=== PATIENT | male | born 1945 | race Caucasian/White ===

== ENCOUNTER 2017-09-25 08:20 | Observation (INO) | payer OTHER ==
[2017-09-25] VITALS (14 sets, daily range): BP systolic 133–186; BP diastolic 81–97; PULSE 47–65; TEMP 36.4–36.9; O2SAT 95–100; Ht 177.8 cm; Wt 92.8 kg
[~2017-09-25] VITALS: Ht 177.8 cm; Wt 92.8 kg
[~2017-09-25 08:20] MED LIST: ASPEC81 PO; CIPR-255 PO; FINA5TAB PO; IBUP-1050 PO; PHEN-876 PO; PRLSR20 PO; SIMV40TA2 PO; TAMS0.4C38 PO; TERA1CAP63 PO
[2017-09-25] MEDS ORDERED: CYAN500T PO (09:06)
[2017-09-25] MEDS ORDERED: GLC/500 PO (09:06)
[2017-09-25] MEDS ORDERED: OMEG10007 PO (09:06)
[2017-09-25] MEDS ORDERED: CHOL1000 PO (09:06)
[2017-09-25] MEDS ORDERED: ATOR10TA82 PO (09:06)
--- NOTE | 2017-09-25 09:30 | Pre Sedation Assessment ---
Pre Sedation Assessment General Date of Sedation: Sep 25, 2017. Vital Signs Past 12 Hours Date Time Temp Pulse Resp B/P (MAP) Pulse Ox O2 Delivery O2 Flow Rate FiO2 09/25/17 09:04 36.4 47 16 182/97 (125) 100 Room Air Review Cardiovascular: regular rate, rhythm, no murmur, + bradycardia Lungs: lungs clear, normal breath sounds Pre-Sedation Airway Assessment Smoking Status: Former Smoker Hx of Sleep Apnea: No Short Thick Neck: No Thyro-mental Distance: > 3 Finger Breadths Oral Cavity: WNL Mallampati Classification: Class II ASA Classification: Class II NPO Status Date of Last Intake of Fluids: Sep 24, 2017 Time of Last Intake of Fluids: 1999 Date of Last Intake of Solids: Sep 24, 2017 Time of Last Intake of Solids: 1999 Procedure Planning Contraindications for Sedation: None Current Medications Reviewed: Yes Notes The planned sedation has been discussed with the patient. Informed Consent was obtained. I have identified the patient, determined the appropriateness of sedation and have assessed the patient immediately prior to the procedure. All medicine(s) and interventions are by my order.
--- NOTE | 2017-09-25 09:30 | History & Physical Bridge Note ---
H&P Re-Evaluation Bridge Note: I have examined the patient, reviewed the History & Physical and in the interval since the performance of the History & Physical I have noted the following changes of clinical significance: No changes noted
[2017-09-25] MEDS ORDERED: LIDOCAINE HCL 1% 20 ML VIAL ONE (10:28)
[2017-09-25] MEDS ORDERED: BACITRACIN 50000 UNIT VIAL ONE (10:29)
[2017-09-25] MEDS ORDERED: BUPIVACAINE 0.25% 30 ML VIAL ONE (10:29)
[2017-09-25] MEDS ORDERED: CEFAZOLIN SOD 1 GM VIAL ONE (10:36)
[2017-09-25] MEDS ORDERED: FENTANYL CITRATE INJ 50 MCG/1 ML 2 ML VIAL ONE ×2 (10:36→11:20)
[2017-09-25] MEDS ORDERED: MIDAZOLAM HCL 5 MG/ML 1 ML VIAL ONE ×2 (10:36→11:28)
[2017-09-25] MEDS ORDERED: WATER, STERILE FOR INJ 20 ML VIAL ONE (10:37)
--- NOTE | 2017-09-25 11:49 | Post Sedation Assessment ---
Post Sedation Assessment General Date of Sedation Sep 25, 2017. Vital Signs: Vital Signs Past 12 Hours Date Time Temp Pulse Resp B/P (MAP) Pulse Ox O2 Delivery O2 Flow Rate FiO2 09/25/17 09:04 36.4 47 16 182/97 (125) 100 Room Air Post Procedure Recovery Score Activity: (2) Moves 4 extremities * Respiration: (2) Deep breath/cough Circulation: (2) +/-20% PreAnes Value Consciousness: (2) Fully Awake Oxygen Saturation: (2) > 92% On Room Air Discharge Sedation Level of Care: Fast Track Phase II Post Sedation Plan On clinical assessment, the patient appears to have tolerated the sedation without complications. Patient is recovering as anticipated. Patient will continue to be monitored by nursing and may be discharged when sedation discharge criteria are met per below protocol. Upon Completions of procedure and additional 15 minutes continue every 5 minute vital signs and the P.A.R. score; then discharge to a Phase I or Fast Track to Phase II per the following guidelines: * Discharge Patient to appropriate Phase II area if PAR is 8 or greater or return to pre- procedure baseline. The post - procedure orders will be as directed. * If PAR score is less than 8 or not return to pre-procedure baseline then patient will follow Phase I monitoring till PAR is reached for Phase II. The Phase I may be done in procedure room or may call to secure a Phase I area. * If naloxone or flumazenil are used for reversal, hold in Phase I for an additional 60 -120 minutes before discharge to Phase II. Please call the Sedation Physician to re-evaluate and complete post-note for discharge to Phase II area. Do NOT discharge from procedure sedation or Phase 1 until post- sedation evaluation note is complete by procedure /sedation MD Sedation Discharge Instructions to be given to the patient at discharge to home.
--- NOTE | 2017-09-25 11:51 | [facility] Post Operative Brief Note ---
Immediate Operative Summary Operative Date Sep 25, 2017. Pre-Operative Diagnosis tbs Post-Operative Diagnosis same Procedure(s) Performed dual chamber rate responsive permanent pacemaker under fluroscopic guidance Surgeon alo conde Test Specialist Surgeon(s) none Estimated Blood Loss <20cc Findings See Below see official report Fluids (cc crystalloids) 150cc Specimens none Drains None Anesthesia Type IV Sedat Cons RN Only Complication(s) none Disposition Accompanied Pt To Recover: yes Disposition: PCU Overlapping Procedure I was present for: the critical portions of procedure. I was immediately available: during the entire case Back up surgeon: was not required during procedure
[2017-09-25 14:26] LABS: CREATININE 0.94 mg/dl (0.60-1.40)
[2017-09-25] MEDS ORDERED: IV FLUIDS COMPLETED PRN (14:45)
[2017-09-25] MEDS: METOPROLOL SUCC 25MG EXT REL TAB PO SCH (14:49)
[2017-09-25] MEDS: OXYCODONE/ACETAMINOPHEN 5-325 TAB PO PRN ×2 (14:53→20:43)
--- NOTE | 2017-09-25 15:45 | OPERATIVE REPORT ---
DATE OF OPERATION: 09/25/2017 PREOPERATIVE DIAGNOSIS: Tachybrady syndrome. POSTOPERATIVE DIAGNOSIS: Tachybrady syndrome. PROCEDURE: Dual chamber rate responsive permanent pacemaker under fluoroscopic guidance. SURGEON: Christina Singh DO ASSISTANTS: None. ANESTHESIA: Moderate conscious sedation administered under my supervision by Steffnay Weinstein. Start time 10:48. End time 11:45. A total of 6 mg of Versed and 50 mcg of fentanyl. IV FLUIDS: 150 mL. BLOOD LOSS: Less than 20 mL. URINE OUTPUT: Not applicable. SPECIMENS: None. FINDINGS: See below. DRAINS: None. ANTIBIOTICS: Two grams of Ancef. INDICATIONS: This is a 72-year-old gentleman who has past medical history of paroxysmal atrial fibrillation. He underwent a cardioversion at [facility] back on June 24 in 2011. He is on low dose beta baldo and his CHADS2-VASc score is 1, so he is not on Coumadin, history of SVT status post an AVRT [place] [address] Reilly, chronic kidney disease stage III, history of tobacco abuse, anemia secondary to hemorrhoids, peripheral neuropathy, history of basal cell cancer, gastroesophageal reflux disease, arthritis, and history of prostate cancer. Due to evidence of tachybrady syndrome, he was recommended dual chamber pacemaker. CONSENT: Consent was obtained prior to the patient going into electrophysiology lab. The patient was informed of risks, benefits, and alternative of procedure. Risks include but not limited to sudden cardiac , cardiac arrhythmias, cerebrovascular accident, myocardial infarction, injury to the blood vessels, chamber of the heart, lung, bleeding, and infection. The patient understood these risks and agreed to the procedure as planned. Informed consent was obtained. DESCRIPTION OF PROCEDURE: The patient was brought into the electrophysiology lab in a fasting state. He was connected to continuous dictating machine mechanic. A timeout was performed to ensure the patient's identity and procedure correctly. The patient was prepped and draped over the left infraclavicular space in normal surgical standard fashion. Moderate conscious sedation was given throughout the procedure for the patient's comfort level. [place] precautions were maintained throughout the procedure. 10 mL of 1% lidocaine, bupivacaine mixture were given in left deltoid groove. Incision was made in left deltopectoral groove. Blunt dissection was performed down to identify the cephalic vein. The cephalic vein was identified and isolated using 0 silk ties. The vein was nicked with an 11 blade and a Glidewire was inserted without any resistance. An 8-[place] sheath was inserted over the Glidewire and the dilator was removed and a second Glidewire was inserted through the 8-[place] sheath to allow for retained venous access without any resistance. The Glidewire and dilator removed. The 8-[place] sheath was flushed, dilator reinserted over and then it was reinserted over the Glidewire. The Glidewire and dilator were then removed. The right ventricle pacing lead was then advanced into right ventricle and positioned and draped in ventricular apex under fluoroscopic guidance. There was adequate pacing and sensing thresholds and no diaphragmatic stimulation at high output pacing. The 8-[place] sheath was peeled away and lead was fixated to pectoralis muscle using 0 silk suture. A second 8-[place] sheath was inserted over the retained Glidewire without any resistance. The Glidewire and dilator removed. The right atrial lead was then advanced into right atrium and positioned into right atrial appendage under fluoroscopic guidance. Initially using the blue J preformed curve but that dislodged, so we used a J preformed curve. There was adequate pacing and sensing thresholds and no diaphragmatic stimulation with high output pacing. The 8-[place] sheath was peeled away and lead was fixated to pectoralis muscle using 0 silk suture. An additional 10 mL of 1% lidocaine with bupivacaine mixture were given in the pectoralis fascia. Then using blunt dissection over the pectoralis muscle within the pectoralis fascia, a pacemaker pocket was created. The pocket was flushed with copious amounts of bacitracin saline wash and inspected for hemostasis. The pulse generator was then attached to leads making sure that the leads were lying flat beneath the device. The pulse generator was then attached to the leads making sure that the pins were in appropriate position, passed set screws and set screws were all tightened. Then, the pulse generator was placed in the pocket, making sure that the leads were lying flat beneath the device. A stay stitch using 0 silk suture was used to secure the device to the pectoralis muscle. Steven was placed in the pocket and then the incision was then closed in 3-layered fashion with 2-0 Vicryl interrupted suture followed by 3-0 Vicryl interrupted suture, followed by 4-0 Monocryl running stitch. EQUIPMENT: 1. Pulse generator is a Medtronic Peosta XTDR MRI SureScan [id number], serial #[id number]. 2. Right atrial lead Medtronic 5076-52 cm, serial #[id number]. 3. Right ventricular lead, Medtronic 5076-58 cm, serial #[id number]. INTRAOPERATIVE TESTIN. Right atrial lead: P waves 3.1 millivolts, impedance 501 ohms, threshold 0.6 volts at 1.2 milliamps. 2. Right ventricular lead: R waves 5.6 millivolts, impedance 638 ohms, threshold 0.3 volts at 0.3 milliamps. FINAL MEASUREMENTS THROUGH THE DEVICE: 1. Right atrial lead: P waves 2 millivolts, impedance 456 ohms, threshold 0.75 volts at 0.4 milliseconds. 2. Right ventricular lead: R waves 7.8 millivolts, impedance 532 ohms, threshold 0.5 volts at 0.4 milliseconds. FINAL PARAMETERS: MVP-R 60/130, right atrial amplitude 3.5 volts, pulse width 0.4 milliseconds, sensitivity 0.3 millivolts. Right ventricular amplitude 3.5 volts, pulse width 0.4 milliseconds, sensitivity 1.2 millivolts. IMPRESSION: Successful implantation of a dual chamber rate responsive pacemaker under fluoroscopic guidance secondary to tachybrady syndrome. PLAN: Monitor the patient overnight, 12-lead ECG, chest x-ray. He is not allowed to lift left elbow or left shoulder for 1 month. He cannot lift more than 10 pounds with the left arm for 2 weeks. He can shower in 2 days, let water run over incision, do not scrub it. He should follow up in our device clinic in 1 week's time for device and wound check and we will restart him on beta baldo 25 mg daily and titrate as necessary. I attest to the content of the Intraoperative Record and any orders documented therein. Any exception s are noted below.
[2017-09-25] MEDS: METFORMIN HCL 500 MG TAB PO SCH (17:08)
[2017-09-25] MEDS: ACETAMINOPHEN 325 MG TAB PO PRN (17:08)
[2017-09-26 04:06] VITALS: BP 172/103; PULSE 65; TEMP 36.6; O2SAT 96
[2017-09-26] MEDS: OXYCODONE/ACETAMINOPHEN 5-325 TAB PO PRN (04:26)
[2017-09-26 07:08] VITALS: BP 146/89; PULSE 55; TEMP 36.5; O2SAT 98
[2017-09-26] MEDS: METOPROLOL SUCC 25MG EXT REL TAB PO SCH (07:36)
[2017-09-26] MEDS: METFORMIN HCL 500 MG TAB PO SCH (07:36)
[2017-09-26] MEDS: ACETAMINOPHEN 325 MG TAB PO PRN (07:38)
--- NOTE | 2017-09-26 07:44 | DIAGNOSTIC IMAGING REPORT ---
CHEST 2 VIEWS ROUTINE CLINICAL HISTORY: 72 years-old Male presenting with EXACT TIME ORDERED Evaluate for pneumothorax and lead placement. TECHNIQUE: PA and lateral views of the chest were obtained. COMPARISON: 06/26/2011. FINDINGS: There has been interval placement of a left subclavian pacer with leads to the right atrium and right ventricular apex. Leads are appropriately positioned. Expected soft tissue emphysema at the pacemaker site. Cardiac silhouette mildly enlarged. Scattered calcified granulomata most evident in the right lung base. Lungs otherwise clear. No pleural effusion or pneumothorax. Degenerative changes of the thoracic spine. Upper abdomen normal. IMPRESSION: 1. Status post placement of the left subclavian 2-lead pacemaker. No pneumothorax. Electronically signed by: Rogelio Tsai M.D. 09/26/2017 7:42 AM Dictated Date/Time: 09/26/2017 7:29 AM
[2017-09-26] MEDS ORDERED: TPRSR25 PO (08:22)
--- NOTE | 2017-09-26 08:24 | Discharge Instructions ---
Discharge Instructions Date of Service Sep 26, 2017. Admission Reason for Admission: Tachy-Kevin Syndrome Discharge Discharge Diagnosis / Problem: TBS s/p dual chamber pacemaker Discharge Goals Goal(s): Improve function Activity Recommendations Activity Limitations: as noted below Shower/Bathe: tomorrow Driving or Machine Use: resume 1 day after discharge (do not lift the left elbow over the left shoulder for 1 month; do not lift more than 10 pounds with the left arm for 2 weeks) . Instructions / Follow-Up Instructions / Follow-Up ACTIVITY RECOMMENDATIONS: * Do not raise affected arm over head for 4 weeks. SPECIAL CARE INSTRUCTIONS: * If bleeding occurs, apply direct pressure to area for 5 minutes. * Call your doctor if you have severe pain, fever, drainage or bleeding at site. * Keep and dry for 24 hours. * Keep any scheduled doctor's appointment. * Implant Card - hand held device with website information given. SKIN IRRITATION: * You may experience some redness and/or swelling in the area where radiation was administered. If any skin irritation occurs, please contact your family physician. FOLLOW UP VISIT: Keep any scheduled doctor appointments. Current Hospital Diet Patient's current hospital diet: AHA Diet (Heart Healthy) Discharge Diet Recommended Diet: AHA Diet (Heart Healthy) Procedures Procedures Performed: dual chamber rate responsive permanent pacemaker under fluroscopic guidance Pending Studies Studies pending at discharge: no Medical Emergencies . Who to Call and When: Medical Emergencies: If at any time you feel your situation is an emergency, please call 911 immediately. . Non-Emergent Contact Non-Emergency issues call your: Cds Sales Advisor . . "Provider Documentation" section prepared by Christina Singh. .
[2017-09-26] MEDS ORDERED: ATORVASTATIN 10 MG TAB PO SCH (09:00)
[2017-09-26] MEDS ORDERED: ASPIRIN 81 MG ECTAB PO SCH (09:00)
[2017-09-26] MEDS ORDERED: PANTOprazole SOD 40 MG TAB PO SCH (09:00)
[2017-09-26] MEDS ORDERED: CYANOCOBALAMIN 500 MCG TAB (VIT B-12) PO SCH (09:00)
[2017-09-26 10:31] VITALS: BP 146/89; PULSE 55; TEMP 36.5; O2SAT 98
--- NOTE | 2017-09-27 09:55 | Discharge Summary ---
Discharge Summary Date of Service Sep 27, 2017. Discharge Summary Admission Date: Sep 25, 2017 at 11:53 Discharge Date: Sep 26, 2017 Discharge Disposition: Home Principal Diagnosis: TBS s/p dual chamber pacemaker Secondary Diagnoses/Problems: pAF h/o DCCV 06/25/2011; [id number] 1 SVT h/o AVRT ablation Dr. Reilly 2011 CKD stage III H/o Tobacco use Anemia due to hemorrhoids peripheral neuropathy h/o basal cell CA GERD Arthritis h/o Prostate CA Procedures: dual chamber permanent pacemaker under fluoroscopic guidance Medication Reconciliation New Medications: Metoprolol Succinate (Metoprolol Succinate ER) 25 Mg Tabcr 25 MG PO QAM for 30 Days Continued Medications: Aspirin Enteric Coated (Ecotrin Or Generic *) 81 Mg Ectab 81 MG PO DAILY, 0 Refills Atorvastatin (Lipitor) 10 Mg Tab 1 TAB PO DAILY for 30 Days, #30 TAB 5 Refills Cholecalciferol (Vitamin D3) 1,000 Unit Tab 1 TAB PO DAILY for 30 Days, #30 TAB 5 Refills Cyanocobalamin (Vitamin B-12) 500 Mcg Tab 500 MCG PO DAILY, TAB Fish Oil ([place]-3) 1 Ea Cap 1 CAP PO, CAP Ibuprofen (Advil) 200 Mg Tab 400 MG PO TID PRN, 0 Refills Metformin Hcl (Glucophage) 500 Mg Tab 500 MG PO BID, TAB Omeprazole (Prilosec) 20 Mg Capcr 20 MG PO Q2D, 0 Refills Admission Information Physical Exam (per Admitting): aaox3, NAD NC/AT, EOMI Supple, No JVD Nrl S1, S2; bradycardia no murmur CTA b/l No w/r/r Soft NT/ND No edema b/l LE No focal deficits Skin intact Hospital Course Pt admitted for elective pacemaker insertion due to TBS. Underwent procedure without any complications. Monitored overnight and discharged home. Started on Toprol. Total time spent on discharge = > 30 minutes This includes examination of the patient, discharge planning, medication reconciliation, and communication with other providers. Discharge Instructions ACTIVITY RECOMMENDATIONS: * Do not raise affected arm over head for 4 weeks. SPECIAL CARE INSTRUCTIONS: * If bleeding occurs, apply direct pressure to area for 5 minutes. * Call your doctor if you have severe pain, fever, drainage or bleeding at site. * Keep dressing on and dry for 48 hours then remove. * Keep any scheduled doctor's appointment. * Implant Card - hand held device with website information given. SKIN IRRITATION: * You may experience some redness and/or swelling in the area where radiation was administered. If any skin irritation occurs, please contact your family physician. FOLLOW UP VISIT: Keep any scheduled doctor appointments.
== END 2017-09-26 11:20 | disposition home or self-care (01) ==
LOC: C.EP 08:20 → ENRESERV 11:23 → C.2T 11:53
PROVIDERS: ADMIT Internal Medicine; ATTEND Internal Medicine
DX: I49.5 Sick sinus syndrome (principal); I48.0 Paroxysmal atrial fibrillation; N18.3 Chronic kidney disease, stage 3 (moderate); M17.10 Unilateral primary osteoarthritis, unspecified knee; K21.9 Gastro-esophageal reflux disease without esophagitis; N40.1 Benign prostatic hyperplasia with lower urinary tract symptoms; N13.8 Other obstructive and reflux uropathy; E55.9 Vitamin D deficiency, unspecified; E78.5 Hyperlipidemia, unspecified; G62.9 Polyneuropathy, unspecified; D64.9 Anemia, unspecified; K64.8 Other hemorrhoids; Z98.890 Other specified postprocedural states; Z79.82 Long term (current) use of aspirin; Z87.891 Personal history of nicotine dependence; Z85.828 Personal history of other malignant neoplasm of skin; Z90.79 Acquired absence of other genital organ(s)